=== PATIENT | male | born 1975 | race Caucasian/White ===

== ENCOUNTER 2016-11-29 15:04 | Emergency (ER) | payer MEDICAID ==
[~2016-11-29] VITALS: Ht 198.1 cm; Wt 79.7 kg
[~2016-11-29 15:04] MED LIST: CHOL100011 PO; FERR159T3 PO; HYDR-3240 PO; HYDR-3307 PO; MULT-26 PO; NONE PER PT
[2016-11-29 15:09] VITALS: BP 125/76
[2016-11-29] MEDS ORDERED: HYDROcodone/APAP 5/325 TABLET PO ONE (15:30)
[2016-11-29] MEDS ORDERED: METHOCARBAMOL 750 MG TABLET PO ONE (15:30)
[2016-11-29] MEDS ORDERED: METHOCARBAMOL 750 MG TABLET ONE (15:32)
[2016-11-29] MEDS ORDERED: KETOROLAC 30 MG/1 ML ONE (16:23)
[2016-11-29] MEDS ORDERED: KETOROLAC 30 MG/1 ML IM ONE (16:30)
== END 2016-11-29 16:46 | disposition home or self-care (01) ==
LOC: ED 16:40
DX: S29.012A Strain of muscle and tendon of back wall of thorax, initial encounter (principal); X58.XXXA Exposure to other specified factors, initial encounter; Y93.89 Activity, other specified; Y99.8 Other external cause status; Y92.89 Other specified places as the place of occurrence of the external cause
CPT/HCPCS: 81003; 96372; 99283; J1885